=== PATIENT | male | born 2000 | race Caucasian/White ===

== ENCOUNTER 2018-06-01 23:36 | Emergency (ER) | payer SELFPAY ==
[~2018-06-01] VITALS: Ht 190.5 cm; Wt 102.3 kg
[2018-06-02] MEDS ORDERED: BUPIVACAINE HCL/PF 0.25% 10 ML VIAL INJ ONE (02:00)
[2018-06-02] MEDS ORDERED: PERTUSS(ACELL),DIPH,TET VAC/PF 0.5 ML VIAL IM ONE (03:30)
[2018-06-02] MEDS ORDERED: BACITRACIN 0.9 GM PACKET OINTMENT TP ONE (03:30)
[2018-06-02 03:34] VITALS: BP 111/85
== END 2018-06-02 03:35 | disposition home or self-care (01) ==
LOC: EMS 23:37
DX: S01.111A Laceration without foreign body of right eyelid and periocular area, initial encounter (principal); F17.210 Nicotine dependence, cigarettes, uncomplicated; F12.90 Cannabis use, unspecified, uncomplicated; F10.129 Alcohol abuse with intoxication, unspecified; Y90.6 Blood alcohol level of 120-199 mg/100 ml; W01.10XA Fall on same level from slipping, tripping and stumbling with subsequent striking against unspecified object, initial encounter; Y93.89 Activity, other specified; Y92.89 Other specified places as the place of occurrence of the external cause; Y99.8 Other external cause status
CPT/HCPCS: 12013; 36415; 90471; 90715; 99283; 99406; G0480; J3490